=== PATIENT | male | born 1985 | race Caucasian/White ===

== ENCOUNTER 2017-08-04 11:08 | Emergency (ER) | payer BC ==
--- NOTE | 2017-08-04 12:39 | ER ---
Nurse's Notes [facility] Name: Fan Mendoza Age: 32 yrs Sex: Male : 1985 Arrival Date: 08/04/2017 Time: 11:11 Bed 14 Private MD: Dereje Garcia E Diagnosis: Acute upper respiratory infection, unspecified Presentation: 08/04 11:16 Presenting complaint: Patient states: "The last couple of days I have had a sore throat lk1 and some sinus problems. My has strep throat.". Transition of care: patient was not received from another setting of care. Onset of symptoms was August 01, 2017. Care prior to arrival: None. 11:16 Method Of Arrival: Ambulatory lk1 11:16 Acuity: CLAIR 4 lk1 Triage Assessment: 11:17 General: Appears in no apparent distress. Behavior is calm, cooperative, appropriate lk1 for age. Pain: Complains of pain in throat Pain currently is 4 out of 10 on a pain scale. EENT: Reports nasal congestion pain when swallowing. Historical: - Allergies: 11:17 No Known Allergies; lk1 - PMHx: 11:17 None; lk1 - PSHx: 11:17 None; lk1 - Immunization history:: Adult Immunizations up to date. - Social history:: Smoking status: Patient/guardian denies using tobacco. Screenin:08 Abuse screen: Denies threats or abuse. Denies injuries from another. Nutritional iw screening: No deficits noted. Tuberculosis screening: No symptoms or risk factors identified. Fall Risk None identified. Assessment: 12:07 General: Appears in no apparent distress. Behavior is calm, cooperative. Pain: iw Complains of pain in throat. Neuro: Level of Consciousness is awake, alert, obeys commands, Oriented to person, place, time, situation. Cardiovascular: Patient's skin is warm and dry. Respiratory: Airway is patent Respiratory effort is even, unlabored, Breath sounds are clear. EENT: Throat is reddened bilaterally with gag reflex present. Musculoskeletal: Range of motion: intact in all extremities. Vital Signs: 11:18 BP 133 / 82; Pulse 63; Resp 15; Temp 97.8(TE); Pulse Ox 97% on R/A; Weight 108.86 kg lk1 (R); Height 6 ft. 0 in. (182.88 cm) (R); Pain 4/10; 11:18 Body Mass Index 32.55 (108.86 kg, 182.88 cm) lk1 ED Course: 11:11 Patient arrived in ED. as 11:11 Dereje Garcia MD is Private Physician. as 11:17 Triage completed. lk1 11:18 Arm band placed on right wrist. lk1 11:20 Aguilar Hedrick PA is PHCP. cp 11:21 Aguilar Hedrick PA is PHCP. cp 11:21 Stevie Butler MD is Attending Physician. cp 11:32 Evelyn Hamlin, RN is Primary Nurse. iw 12:00 Patient has correct armband on for positive identification. iw 12:08 No provider procedures requiring assistance completed. Flu and/or RSV swab sent to lab. iw Strep swab sent to lab. Patient did not have IV access during this emergency room visit. Administered Medications: No medications were administered Outcome: 12:38 Discharge ordered by MD. cp 12:55 Discharged to home ambulatory. ss 12:55 Condition: good 12:55 Discharge instructions given to patient, Instructed on discharge instructions, follow up and referral plans. medication usage, Demonstrated understanding of instructions, follow-up care, medications, Prescriptions given X 1. 12:57 Patient left the ED. ss Signatures: Abigail Callejas as Evelyn Hamlin, MIRA RN Tania Leonardo RN RN Aguilar Hedrick PA PA cp Kluge, Leah, RN RN lk1
--- NOTE | 2017-08-04 12:39 | EDPHYS ---
Physician Documentation [facility] Name: Fan Mendoza Age: 32 yrs Sex: Male : 1985 Arrival Date: 08/04/2017 Time: 11:11 Bed 14 Private MD: Dereje Garcia E ED Physician Stevie Butler HPI: 08/04 11:25 This 32 yrs old Male presents to ER via Ambulatory with complaints of Sinus cp Congestion, Sore Throat. 11:25 The patient or guardian reports cough, that is intermittent. cp 11:25 Onset: The symptoms/episode began/occurred 3 day(s) ago. Severity of symptoms: in the emergency department the symptoms have improved, mildly. Associated signs and symptoms: Pertinent positives: fever, sore throat, Pertinent negatives: chest pain, diarrhea, vomiting. Historical: - Allergies: 11:17 No Known Allergies; lk1 - PMHx: 11:17 None; lk1 - PSHx: 11:17 None; lk1 - Immunization history:: Adult Immunizations up to date. - Social history:: Smoking status: Patient/guardian denies using tobacco. ROS: 11:30 Constitutional: Negative for body aches, chills, fever, poor PO intake. cp 11:30 Eyes: Negative for injury, pain, redness, and discharge. cp 11:30 ENT: Positive for sinus congestion, sore throat, Negative for drainage from ear(s), ear pain, difficulty swallowing, difficulty handling secretions. 11:30 Neck: Negative for pain with movement, pain at rest, stiffness. 11:30 Cardiovascular: Negative for chest pain, palpitations. 11:30 Respiratory: Positive for cough, "sounds productive", Negative for wheezing. 11:30 Abdomen/GI: Negative for abdominal pain, vomiting, diarrhea, constipation. 11:30 Skin: Negative for cellulitis, rash. 11:30 All other systems are negative. Exam: 11:35 Constitutional: The patient appears in no acute distress, alert, awake, non-toxic, well cp developed, well nourished. 11:35 Head/Face: Normocephalic, atraumatic. cp 11:35 Eyes: Periorbital structures: appear normal, Pupils: equal, round, and reactive to light and accomodation, Conjunctiva: normal, no exudate, no injection, Sclera: no appreciated abnormality, Lids and lashes: appear normal, bilaterally. 11:35 ENT: External ear(s): are unremarkable, Ear canal(s): are normal, clear, TM's: bulging, is not appreciated, bilaterally, dullness, bilaterally, erythema, is not appreciated, bilaterally, Nose: is normal, Mouth: Lips: moist, Oral mucosa: pink and intact, moist, Posterior pharynx: Airway: no evidence of obstruction, patent, Tonsils: are normal in appearance, Uvula: midline, non-edematous, no erythema, swelling, is not appreciated, erythema, that is mild, exudate, is not appreciated, Voice: is normal. 11:35 Neck: ROM/movement: is normal, is supple, without pain, no range of motions limitations, no meningismus, no nuchal rigidity, Lymph nodes: no appreciated lymphadenopathy. 11:35 Chest/axilla: Inspection: normal, Palpation: is normal, no crepitus, no tenderness. 11:35 Cardiovascular: Rate: normal, Rhythm: regular. 11:35 Respiratory: the patient does not display signs of respiratory distress, Respirations: normal, no use of accessory muscles, no retractions, no splinting, no tachypnea, labored breathing, is not present, Breath sounds: are clear throughout, no decreased breath sounds, no stridor, no wheezing. 11:35 Abdomen/GI: Exam negative for discomfort, distension, guarding, Inspection: abdomen appears normal. 11:35 Skin: cellulitis, is not appreciated, no rash present. Vital Signs: 11:18 BP 133 / 82; Pulse 63; Resp 15; Temp 97.8(TE); Pulse Ox 97% on R/A; Weight 108.86 kg lk1 (R); Height 6 ft. 0 in. (182.88 cm) (R); Pain 4/10; 11:18 Body Mass Index 32.55 (108.86 kg, 182.88 cm) lk1 MDM: 11:21 Patient medically screened. cp 12:00 Differential Diagnosis: Bronchitis Influenza Pharyngitis Viral Syndrome Pneumonia. cp 12:37 Data reviewed: vital signs, nurses notes, lab test result(s), and as a result, I will cp discharge patient. 08/04 12:00 Order name: Strep; Complete Time: 12:27 cp 08/04 12:27 Interpretation: Reviewed. 08/04 12:00 Order name: Influenza Screen (a \\T\\ B); Complete Time: 12:27 08/04 12:28 Interpretation: Reviewed. 08/04 12:24 Order name: Throat Culture EDMS Administered Medications: No medications were administered Disposition: 08/04/17 12:38 Discharged to Home. Impression: Acute upper respiratory infection, unspecified. - Condition is Stable. - Discharge Instructions: Upper Respiratory Infection, Adult. - Prescriptions for Tessalon Perles 100 mg Oral Capsule - take 1 capsule by ORAL route every 8 hours As needed; 15 capsule. - Medication Reconciliation Form, Thank You Letter, Antibiotic Education, Prescription Opioid Use form. - Follow up: Private Physician; When: 2 - 3 days; Reason: Recheck today's complaints. - Problem is new. - Symptoms are unchanged. Addendum: 08/05/2017 13:20 Co-signature as Attending Physician, Stevie Butler MD. g s Signatures: Dispatcher [employer] EDND Tania Leonardo RN RN Aguilar Saeed PA PA cp Kluge, Leah, RN RN lk1 Stevie Butler MD MD
== END 2017-08-04 12:57 | disposition home or self-care (01) ==
LOC: ER 11:08
DX: J06.9 Acute upper respiratory infection, unspecified (principal)
CPT/HCPCS: 87070; 87081; 87804; 99283